=== PATIENT | female | born 2000 | race Two or more races ===

== ENCOUNTER 2021-07-01 10:36 | Emergency (ER) | payer MEDICAID ==
[~2021-07-01] VITALS: Ht 177.8 cm; Wt 73.8 kg
[2021-07-01] MEDS ORDERED: DEXAMETHASONE 4 MG/ML, 1ML ONE (11:39)
[2021-07-01 11:44] VITALS: BP 121/86
[2021-07-01] MEDS ORDERED: DEXAMETHASONE 4 MG/ML, 1ML PO ONE (12:00)
== END 2021-07-01 12:34 | disposition home or self-care (01) ==
LOC: ED 12:10
DX: U07.1 COVID-19 (principal); B34.9 Viral infection, unspecified
CPT/HCPCS: 71045; 87081; 87880; 93005; 99285; J1100; U0003; U0005